=== PATIENT | male | born 1985 | race Caucasian/White ===

== ENCOUNTER 2019-10-03 19:41 | Emergency (ER) | payer MEDICARE, MEDICAID ==
[2019-10-03] MEDS ORDERED: Diphtheria,Pertussis(Acell),Tetanus Vaccine 0.5 ML SDV IM ONE (19:44)
[2019-10-03] MEDS ORDERED: Bacitracin/Neomycin/Polymyxin B Oint 0.9 GM U/D Packet TOP ONE (19:44)
--- NOTE | 2019-10-03 19:44 | EDM.PDOC ---
ED HPI GENERAL MEDICAL PROBLEM - General Chief Complaint: Laceration Stated Complaint: dog bite Time Seen by Provider: 10/03/19 19:44 Source of Information: Reports: Patient, Family (Mother), Old Records ([facility] chart/EMR) History Limitations: Reports: No Limitations - History of Present Illness INITIAL COMMENTS - FREE TEXT/NARRATIVE: The patient was brought to the emergency room via private automobile by his mother for evaluation of a dog bite injury, which occurred at about 19:00 hours at home this afternoon. The patient was moving some branches in their yard when the neighbor's dog jumped their fence and attacked the patient on his left leg. The dog has apparently been unfriendly and aggressive in the past, however previous bite history and rabies immunization status are unknown at this time. The animal did not exhibit any other different or unusual behavior. No recent history of abdominal pain, heartburn, nausea, diarrhea, melena, gross hemat ochezia, or any food intolerance, including fatty foods, etc.. The patient also denies any recent fever, cough, wheezing, dyspnea, etc.. 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 Denies: Dressing(s) - Related Data Allergies Allergy/AdvReac Type Severity Reaction Status Date / Time chloral hydrate AdvReac Hyperactivi Verified 10/03/19 19:57 ty Home Meds: Home Meds Sertraline [Zoloft] 25 mg PO DAILY 01/17/15 [History] Sertraline [Zoloft] 100 mg PO DAILY 01/17/15 [History] Amoxicillin/Potassium Clav [Augmentin 875-125 Tablet] 1 each PO BIDMEALS #14 tablet 10/03/19 [Rx] Methylphenidate HCl [Methylphenidate ER] 30 mg PO DAILY 10/03/19 [History] Past Medical History HEENT History: Reports: None. Denies: Allergic Rhinitis, Hard of Hearing, Impaired Vision Cardiovascular History: Denies: Arrhythmia, Blood Clots/VTE/DVT, Heart Murmur, High Cholesterol, Hypertension Respiratory History: Reports: None. Denies: Asthma, PE Gastrointestinal History: Reports: Hemorrhoids. Denies: Chronic Constipation, Chronic Diarrhea, GERD, Jaundice, PUD Genitourinary History: Reports: None Musculoskeletal History: Reports: None. Denies: Arthritis, Fracture, Gout, Osteoarthritis Neurological History: Reports: Other (See Below). Denies: Concussion, Headaches, Chronic, Head Trauma, Migraines, Seizure Other Neuro History: Autism, ADHD, learning disability Psychiatric History: Reports: Anxiety, Depression. Denies: Abuse, Victim of, ADD, ADHD, Addiction Endocrine/Metabolic History: Reports: Obesity/BMI 30+ Hematologic History: Reports: None. Denies: Anemia, Blood Transfusion(s) Immunologic History: Reports: None Oncologic (Cancer) History: Reports: None Dermatologic History: Reports: None. Denies: Eczema - Infectious Disease History Infectious Disease History: Reports: Chicken Pox. Denies: Shingles - Past Surgical History Head Surgeries/Procedures: Reports: None HEENT Surgical History: Reports: Oral Surgery, Other (See Below) Other HEENT Surgeries/Procedures: Ward teeth extraction at age 16. Multiple crowns placed on his baby teeth initially with regular crowns and titanium crowns at about age 5. GI Surgical History: Reports: Colonoscopy, Other (See Below) Other GI Surgeries/Procedures: Colonoscopy on 06/25/07. Social & Family History - Family History GI: Reports: Inflammatory Bowel Disease, Other (See Below) Other GI Family History: Maternal grandfather with Crohn's disease. 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 ED EXAM, SKIN/RASH Exam: See Below Exam Limited By: No Limitations General Appearance: Alert, WD/WN, No Apparent Distress Head: Atraumatic, Normocephalic Neck: Normal Inspection, Supple, Non-Tender, Full Range of Motion. No: Lymphadenopathy (L), Lymphadenopathy (R), Thyromegaly Respiratory/Chest: No Respiratory Distress, Lungs Clear, Normal Breath Sounds, No Accessory Muscle Use, Chest Non-Tender. No: Pleural Rub, Retractions Cardiovascular: Normal Peripheral Pulses, Regular Rate, Rhythm, No Edema, No Gallop, No JVD, No Murmur, No Rub. No: Gallop/S3, Gallop/S4, Friction Rub Peripheral Pulses: 2+: Radial (L), Radial (R), Dorsalis Pedis (L), Dorsalis Pedis (R) GI/Abdominal: Normal Bowel Sounds, Soft, Non-Tender, No Organomegaly, No Distention, No Abnormal Bruit, No Mass, Pelvis Stable, Other (Obese). No: Guarding (Male) Exam: Deferred Rectal (Males) Exam: Deferred Back Exam: Normal Inspection, Full Range of Motion. No: CVA Tenderness (L), CVA Tenderness (R), Muscle Spasm Extremities: Normal Range of Motion, No Pedal Edema, Normal Capillary Refill, Leg Pain (Mild localized tenderness over Dr. bite sites with minimal localized swelling and erythema but no evidence of foreign body, etc.), Other (Multiple puncture wounds/dog bites over the left mid to distal calf region with additional superficial 3 cm scratch consistent with either a dog bite and/or dog nail scratch). No: Pedal Edema, Joint Swelling, Cristi's Sign Neurological: Alert, Oriented, CN II-XII Intact, Normal Gait, Normal Reflexes, No Motor/Sensory Deficits, Other (Stable mental status secondary to his autism) Psychiatric: Normal Affect, Normal Mood Skin: Normal Color, Ecchymosis (Minimal as above), Wound/Incision (As above). No: Increased Warmth, Lymphangitis Location, Skin: Lower Extremity, Left Characteristics: Other (As above) Associated features: Tenderness. No: Warmth, Lymphangitis Lymphatic: No Adenopathy Course - Vital Signs Last Recorded V/S: Last Vital Signs Temp 37.5 C 10/03/19 19:50 Pulse 90 10/03/19 19:50 Resp 12 10/03/19 19:50 BP 130/80 10/03/19 19:50 Pulse Ox 98 10/03/19 19:50 Vital Signs - 24 hr 10/03/19 19:50 Temperature [ 37.5 C Temporal] Pulse, 90 Peripheral [ Right Pulse Oximetry] Respiratory 12 Rate Blood Pressure 130/80 [Left Upper Arm ] O2 Sat by Pulse 98 Oximetry - Orders/Labs/Meds Orders: Active Orders 24 hr Category Date Time Status Vaccines to be Administered [RC] PER UNIT ROUTINE Care 10/03/19 19:44 Active Obtain Past Medical Record [OM.PC] Routine Oth 10/03/19 19:44 Active Labs: None Meds: Medications Discontinued Medications Generic Name Dose Route Start Last Admin Trade Name Freq PRN Reason Stop Dose Admin Ceftriaxone Sodium 1 gm 10/03/19 19:49 10/03/19 19:56 Rocephin IM 10/03/19 19:50 1 gm ONETIME ONE Administration Diphtheria/Tetanus/Acell Pertussis 0.5 ml 10/03/19 19:44 10/03/19 19:51 Adacel IM 10/03/19 19:45 0.5 ml .ONCE ONE Administration Lidocaine HCl 2.1 ml 10/03/19 19:49 10/03/19 19:56 Xylocaine-Mpf 1% INJECT 10/03/19 19:50 2.1 ml ONETIME ONE Administration Neomycin/Polymyxin/Bacitracin 1 each 10/03/19 19:44 10/03/19 19:50 Triple Antibiotic Oint TOP 10/03/19 19:45 1 each ONETIME ONE Administration - Radiology Interpretation Free Text/Narrative:: None Departure - Departure Time of Disposition: 20:35 Disposition: Home, Self-Care 01 Clinical Impression: Mixed anxiety depressive disorder, Autism Dog bite Qualifiers: Encounter type: initial encounter Qualified Code(s): W54.0XXA - Bitten by dog, initial encounter ADHD (attention deficit hyperactivity disorder) Qualifiers: Attention deficit-hyperactivity disorder type: combined inattentive-hyperactive Qualified Code(s): F90.2 - Attention-deficit hyperactivity disorder, combined type - Discharge Information *PRESCRIPTION DRUG MONITORING PROGRAM REVIEWED*: Not Applicable *COPY OF PRESCRIPTION DRUG MONITORING REPORT IN PATIENT IBETH: Not Applicable Prescriptions: Amoxicillin/Potassium Clav [Augmentin 875-125 Tablet] 1 each PO BIDMEALS #14 tablet Instructions: Animal Bite, Adult, [id number] Referrals: Jackelin Carrion NP [Primary Care Provider] - Forms: ED Department Discharge Additional Instructions: 1. Follow up with your regular provider in 10-14 days as needed, if symptoms persist. Bring these discharge instructions with you to that visit.. 2. Tylenol 650 mg by mouth every 4 hours and/or OTC ibuprofen 2-3 tabs by mouth every 6 hours with food as directed./needed. You may stagger these medications for 48-72 hours only, which essentially means that you are receiving a pain medication about every 2 hours. 3. Antibacterial soap wash/soak with subsequent antibacterial dressing such as Neosporin, etc. as directed 2 times per day until the wound site completely heals. Keep the area clean and dry with activity restrictions as discussed. Never use hydrogen peroxide for wound care. 4. Initiate Augmentin tomorrow morning with diarrhea precautions as discussed. Take this medication for the full 10 days, i.e., both the emergency room prescription and the prescription at her pharmacy. 5. Verify that the dogs rabies immunizations are up-to-date [facility] 6. Notify the [place] police about today's dog bite to see whether or not this animal has elicited aggressive behavior in the past with possible submission of the animal for sacrifice, etc. as discussed. 7. Immediately after this visit verify that your cellular telephone's voicemail has been activated and is empty. Also verify that your home telephone's answering machine is operating properly and has space to receive messages. Note that it is sometimes necessary for us to be able to contact you at a later date to discuss your medical care. 8. Please remember that we are ALWAYS here for you and want to answer any questions you may have. Feel free to call the hospital any time and we call you back NELLY. - Problem List & Annotations (1) Dog bite SNOMED Code(s): 743369006, 073244761 Code(s): W54.0XXA - BITTEN BY DOG, INITIAL ENCOUNTER Status: Acute Priority: High Onset Date: 10/03/19 Annotation/Comment:: Last TdAP on 12/15/09, which was confirmed by our medical records. DTaP given in the emergency room. Per his mother's request IM Rocephin was given in the emergency with initiation of Augmentin therapy tomorrow morning. Wound care discussed. Qualifiers: Encounter type: initial encounter Qualified Code(s): W54.0XXA - Bitten by dog, initial encounter (2) ADHD (attention deficit hyperactivity disorder) SNOMED Code(s): 212332349 Code(s): F90.9 - ATTENTION-DEFICIT HYPERACTIVITY DISORDER, UNSPECIFIED TYPE Status: Chronic Priority: Medium Annotation/Comment:: Stable by patient history Qualifiers: Attention deficit-hyperactivity disorder type: combined inattentive- hyperactive Qualified Code(s): F90.2 - Attention-deficit hyperactivity disorder, combined type (3) Autism SNOMED Code(s): 598921688 Code(s): F84.0 - AUTISTIC DISORDER Status: Chronic Priority: Medium Annotation/Comment:: Stable by patient history (4) Mixed anxiety depressive disorder SNOMED Code(s): 983931479 Code(s): F41.8 - OTHER SPECIFIED ANXIETY DISORDERS Status: Chronic Priority: Medium Annotation/Comment:: Stable by patient history - Problem List Review Problem List Initiated/Reviewed/Updated: Yes - My Orders Last 24 Hours: My Active Orders 10/03/19 19:44 Vaccines to be Administered [RC] PER UNIT ROUTINE Obtain Past Medical Record [OM.PC] Routine - Assessment/Plan Last 24 Hours: My Active Orders 10/03/19 19:44 Vaccines to be Administered [RC] PER UNIT ROUTINE Obtain Past Medical Record [OM.PC] Routine Assessment:: As above Plan: As above. Extensive precautions were given to the patient and his mother, who are in agreement with the treatment plan. See Patient Instructions for further treatment and plan.
[2019-10-03] MEDS ORDERED: cefTRIAXone 1 GM Vial IM ONE (19:49)
== END 2019-10-03 20:35 | disposition home or self-care (01) ==
LOC: LL.ED 19:41
DX: S81.852A Open bite, left lower leg, initial encounter (principal); F90.2 Attention-deficit hyperactivity disorder, combined type; F84.0 Autistic disorder; F41.9 Anxiety disorder, unspecified; F32.9 Major depressive disorder, single episode, unspecified; E66.9 Obesity, unspecified; Z79.899 Other long term (current) drug therapy; Z91.048 Other nonmedicinal substance allergy status; Z23 Encounter for immunization; W54.0XXA Bitten by dog, initial encounter
CPT/HCPCS: 90471; 90715; 96372; 99283; 99283-25; J0696; J2001